=== PATIENT | female | born 1955 | race Caucasian/White ===

== ENCOUNTER 2020-04-18 11:30 | Outpatient (CLI) | payer MEDICARE, OTHER ==
--- NOTE | 2020-04-25 11:48 | Mammography Report ---
BILATERAL DIGITAL SCREENING MAMMOGRAM 3D/2D: 04/18/2020 CLINICAL: Routine screening. Comparison is made to exams dated: 11/06/2016 mammogram and 05/13/2014 mammogram - [facility]. Additional films were requested but not obtained. There are scattered fibroglandular element s in both breasts. No significant masses, calcifications, or other findings are seen in either breast. There has been no significant interval change. IMPRESSION: NEGATIVE There is no mammographic evidence of malignancy. A 1 year screening mammogram is recommended. This exam was interpreted at Station ID: [id number]. NOTE: For mammograms, a report in lay terms will be sent to the patient. Approximately 15% of breast malignancies will not be visualized mammographically. In the management of a palpable breast mass, a negative mammogram must not discourage biopsy of a clinically suspicious lesion. Electronically Signed By: Rachael orozco/penrad:04/22/2020 17:17:44 ACR BI-RADS Category 1: Negative 3341F PARENCHYMAL PATTERN: (A) - The breast(s) demonstrate(s) scattered fibroglandular densities. BI-RADS CATEGORY: (1) - 1 RECOMMENDATION: (ANNUAL) - Recommend routine annual screening mammography. [id number] 1 year screening LATERALITY: (B)
== END 2020-04-18 11:31 | disposition home or self-care (01) ==
LOC: DI 11:30
PROVIDERS: ATTEND Internal Medicine
DX: Z12.31 Encounter for screening mammogram for malignant neoplasm of breast (principal)
CPT/HCPCS: 77063; 77067

== ENCOUNTER 2020-04-18 11:34 | Outpatient (CLI) | payer MEDICARE, OTHER ==
--- NOTE | 2020-04-18 18:12 | DEXA Report ---
PROCEDURE: Dexa Spine and/or Hip INDICATIONS: POST MENOPAUSAL TECHNIQUE: Dual energy x-ray absorptiometry (DXA) was performed on a [employer] System. Regions measur ed are the AP Spine, femoral neck, and if needed forearm. COMPARISON: None. FINDINGS: Lumbar Spine: Bone Mineral Density 1.496 g/cm/cm,T score 2.6, normal Left Hip: Bone Mineral Density 0.913 g/cm/cm,T score -0.8, normal Left Femoral Neck: Bone Mineral Density 0.961 g/cm/cm, T score -0.6, normal (T score greater or equal to -1.0: NORMAL) (T score from -1.1 to -2.4: OSTEOPENIA) (T score less than or equal to -2.5 to: OSTEOPOROSIS) Impression: Normal bone mineral density. Patients with diagnosis of osteoporosis or osteopenia should have regular bone mineral density assess ment. For those eligible for Medicare, routine testing is allowed once every 2 years. Testing frequ ency can be increased for patients who have rapidly progressing disease or for those who are receivin g medical therapy to restore bone mass. Reviewed by: Cyrus Cary MD on 04/18/2020 3:25 PM PDT Approved by: Cyrus Cary MD on 04/18/2020 3:25 PM PDT Station ID: [id number]
== END 2020-04-18 11:35 | disposition home or self-care (01) ==
LOC: DI 11:34
PROVIDERS: ATTEND Internal Medicine
DX: Z13.820 Encounter for screening for osteoporosis (principal); N95.8 Other specified menopausal and perimenopausal disorders
CPT/HCPCS: 77080

== ENCOUNTER 2020-08-12 21:18 | Emergency (ER) | payer MEDICARE, OTHER ==
[2020-08-12 22:28] VITALS: BP 149/89
--- NOTE | 2020-08-13 01:39 | ED Physician Documentation ---
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 Patient has a August 20 wound care appointment however she is concerned because her wounds have been getting worse. She has ulcers to the dorsal surface of both feet that she has been covering with bacitracin and nonstick bandages. denies fevers, streaking erythema, pus. does have some chronic tingling and discoloration in the extremities that has not acutely worsened. Review of Systems Constitutional: denies: Fever, Chills Skin: reports: Lesions Musculoskeletal: reports: Extremity pain. denies: Joint pain PD PAST MEDICAL HISTORY - Past Medical History Past Medical History: Yes Cardiovascular: Hypertension, Atrial fibrillation, Other Respiratory: None Endocrine/Autoimmune: Type 2 diabetes GI: None : None HEENT: Other Psych: None Musculoskeletal: None Derm: None - Past Surgical History Past Surgical History: Yes General: Colonoscopy /TAKE AWAY ATTENDANT: section Cardiovascular: Pacemaker HEENT: Tonsil/Adenoidectomy - Present Medications Home Medications: Ambulatory Orders Medication Instructions Recorded Confirmed Atorvastatin Calcium [Lipitor] 20 mg PO 06/25/13 12/31/13 Flecainide [Tambocar] 50 mg PO BID 06/25/13 12/31/13 Metformin HCl 500 mg PO HS 06/25/13 12/31/13 Metoprolol Succinate 50 mg PO HS 06/25/13 08/12/20 Metoprolol Succinate 100 mg PO DAILY 06/25/13 08/12/20 Warfarin Sodium [Coumadin] 2 mg PO 06/25/13 12/31/13 Warfarin [Coumadin] 2.5 mg PO 1400 06/25/13 12/31/13 lisinopriL [Prinivil] 20 mg PO DAILY 06/25/13 08/12/20 Apixaban [Eliquis] 5 mg ORAL BID 08/12/20 08/12/20 hydroCHLOROthiazide [Hydrodiuril] 12.5 mg PO DAILY 08/12/20 08/12/20 - Allergies Allergies/Adverse Reactions: Allergies Allergy/AdvReac Type Severity Reaction Status Date / Time No Known Drug Allergies Allergy Verified 06/25/13 06:54 - Social History Does the pt smoke?: Yes Smoking Status: Current every day smoker Does the pt drink ETOH?: No Does the pt have substance abuse?: No - Immunizations Immunizations are current?: Yes - POLST Patient has POLST: No PD ED PE NORMAL - Vitals Vital signs reviewed: Yes - General General: Alert and oriented X 3 - Extremities Extremities: No deformity, Other (2+ pitting edema. chronic venous stasis ulcers BL dorsum of feet measuring 1cm in diameter with surrounding discoloration. BL varicose veins. 1+ palpable DP pulses) - Neuro Neuro: Alert and oriented X 3 - Psych Psych: Normal mood, Normal affect Results - Vitals Vitals: Vital Signs - 24 hr 08/12/20 08/12/20 08/12/20 21:35 21:42 22:27 Temperature 35.7 C L 36.0 C L 36.1 C L Heart Rate 91 91 88 Respiratory 20 20 20 Rate Blood Pressure 150/88 H 150/88 H 149/89 H O2 Saturation 97 97 98 Oxygen O2 Source Room air PD MEDICAL DECISION MAKING - ED course ED course: 64yF with chronic venous stasis ulcers presents for wound check. not infected appearing at this time. discussed wound care and told her to keep her aug 20 appointment with our wound care clinic, and to make appt with her vascular surgeon. return precautions discussed. Departure - Departure Disposition: Home, Self Care Clinical Impression: Peripheral vascular disease, Foot ulceration Condition: Stable Instructions: Wound Care, Peripheral Artery Disease Comments: You have been seen in the emergency department for evaluation of chronic nonhealing ulcers. They do not appear to be infected at this time. You should return to the ED if the redness spreads, if you have any streaking up the legs, if there is any pus coming out, or if you have fevers. Return for any new or worsening symptoms. Follow-up with your vascular surgeon and with wound care on August 20. Discharge Date/Time: 08/12/20 22:27
== END 2020-08-12 22:27 | disposition home or self-care (01) ==
LOC: ED 21:18
DX: E11.621 Type 2 diabetes mellitus with foot ulcer (principal); E11.51 Type 2 diabetes mellitus with diabetic peripheral angiopathy without gangrene; L97.529 Non-pressure chronic ulcer of other part of left foot with unspecified severity; Z95.0 Presence of cardiac pacemaker; I48.91 Unspecified atrial fibrillation; Z79.01 Long term (current) use of anticoagulants; Z86.718 Personal history of other venous thrombosis and embolism; I10 Essential (primary) hypertension; Z79.84 Long term (current) use of oral hypoglycemic drugs; F17.200 Nicotine dependence, unspecified, uncomplicated
CPT/HCPCS: 99282; 99283

== ENCOUNTER 2021-09-01 15:09 | Outpatient (CLI) | payer MEDICARE, OTHER ==
--- NOTE | 2021-09-01 18:28 | XRAY Report ---
PROCEDURE: Lumbar Spine 2 View INDICATIONS: LOW BACK PAIN TECHNIQUE: 2 views of the lumbar spine were acquired. COMPARISON: None FINDINGS: Bones: 5 [id number] vertebrae are present. Trace multilevel retrolisthesis. Multilevel disc deg eneration, most notably and moderate to severe at the L5-S1 level. Moderate L4-L5 and L5-S1 facet najma nt arthropathy. No vertebral body compression fractures. No suspicious bony lesions. Bones are oste openic. Soft tissues: Overlying bowel gas pattern is normal. No suspicious soft tissue calcifications. IMPRESSION: Multilevel spondylosis, most notably at L5-S1 level. Reviewed by: STAS Prince on 09/01/2021 6:27 PM PST Approved by: Robbi Bello MD on 09/01/2021 6:27 PM PST Station ID: [id number]
== END 2021-09-01 15:10 | disposition home or self-care (01) ==
LOC: DI 15:09
PROVIDERS: ATTEND Internal Medicine
DX: M47.816 Spondylosis without myelopathy or radiculopathy, lumbar region (principal); M47.817 Spondylosis without myelopathy or radiculopathy, lumbosacral region

== ENCOUNTER 2021-09-30 11:11 | Outpatient (CLI) | payer MEDICARE, OTHER | END 2021-09-30 11:12 | disposition short-term general hospital (02) | LOC: EMS 11:11 | DX: I49.9 Cardiac arrhythmia, unspecified (principal) | CPT/HCPCS: A0425; A0427 ==

== ENCOUNTER 2022-01-19 14:01 | Outpatient (CLI) | payer MEDICARE, OTHER ==
[2022-01-19 14:14] LABS: BASOPHILS # (AUTO) 0.1 10^3/uL (0.0-0.1); BASOPHILS % (AUTO) 0.8 %; EOSINOPHILS # (AUTO) 0.2 10^3/uL (0.0-0.7); EOSINOPHILS % (AUTO) 3.7 %; HCT - HEMATOCRIT 42.2 % (37.0-47.0); HGB - HEMOGLOBIN 13.1 g/dL (12.0-16.0); LYMPHOCYTES # (AUTO) 1.6 10^3/uL (1.5-3.5); LYMPHOCYTES % (AUTO) 25.2 %; MEAN CORPUSCULAR HEMOGLOBIN 26.6 pg (27.0-31.0); MEAN CORPUSCULAR VOLUME 85.6 fL (81.0-99.0); MEAN PLATELET VOLUME 9.9 fL (7.9-10.8); MONOCYTES # (AUTO) 0.5 10^3/uL (0.0-1.0); MONOCYTES % (AUTO) 7.7 %; NEUTROPHILS # (AUTO) 3.9 10^3/uL (1.5-6.6); NEUTROPHILS % (AUTO) 62.4 %; PLT - PLATELET COUNT 279 10^3/uL (130-450); RED BLOOD COUNT 4.93 10^6/uL (4.20-5.40); RED CELL DISTRIBUTION WIDTH 13.6 % (12.0-15.0); WHITE BLOOD COUNT 6.3 x10^3/uL (4.8-10.8)
[2022-01-19 14:31] LABS: ALBUMIN/GLOBULIN RATIO 1.3 (1.0-2.2); BILIRUBIN,TOTAL 0.6 mg/dL (0.2-1.0); CALCIUM 9.4 mg/dL (8.5-10.3); CREATININE 0.9 mg/dL (0.4-1.0); POTASSIUM 3.8 mmol/L (3.5-5.0); TOTAL PROTEIN 7.2 g/dL (6.7-8.2)
[2022-01-19 21:44] LABS: ESTIMATED AVERAGE GLUCOSE 148 mg/dL (70-100); HEMOGLOBIN A1c% 6.8 % (4.27-6.07)
== END 2022-01-19 14:02 | disposition home or self-care (01) ==
LOC: LAB 14:01
PROVIDERS: ATTEND Nurse Practitioner Family
DX: R60.0 Localized edema (principal); R60.1 Generalized edema; E11.40 Type 2 diabetes mellitus with diabetic neuropathy, unspecified; E08.21 Diabetes mellitus due to underlying condition with diabetic nephropathy
CPT/HCPCS: 36415; 80053; 83036; 83735; 83880; 85025

== ENCOUNTER 2022-04-24 15:27 | Outpatient (CLI) | payer MEDICARE, OTHER ==
--- NOTE | 2022-04-24 16:36 | DEXA Report ---
PROCEDURE: Dexa Spine and/or Hip INDICATIONS: POST MENOPAUSAL, OSTEOPOROSIS SCREENING TECHNIQUE: Dual energy x-ray absorptiometry (DXA) was performed on a [employer] System. Regions measur ed are the AP Spine, femoral neck, and if needed forearm. COMPARISON: None. FINDINGS: Lumbar Spine: Bone Mineral Density 1.5 g/cm/cm,T score 2.5; normal bone density Left Hip: Bone Mineral Density 0.9 g/cm/cm,T score -0.8, normal bone density Impression: Normal bone density. Patients with diagnosis of osteoporosis or osteopenia should have regular bone mineral density assess ment. For those eligible for Medicare, routine testing is allowed once every 2 years. Testing frequ ency can be increased for patients who have rapidly progressing disease or for those who are receivin g medical therapy to restore bone mass. Reviewed by: Karl Fam MD on 04/24/2022 4:35 PM PDT Approved by: Karl Fam MD on 04/24/2022 4:35 PM PDT Station ID: [id number]
== END 2022-04-24 15:28 | disposition home or self-care (01) ==
LOC: DI 15:27
PROVIDERS: ATTEND Student in an Organized Health Care Education/Training Program
DX: Z13.820 Encounter for screening for osteoporosis (principal); Z78.0 Asymptomatic menopausal state